=== PATIENT | male | born 1990 | race Caucasian/White ===

== ENCOUNTER 2018-03-21 23:04 | Inpatient (IN) | payer OTHER ==
[~2018-03-21] VITALS: Ht 180.3 cm; Wt 137.0 kg
--- NOTE | 2018-03-21 23:45 | ED GI/GU/ABDOMINAL COMPLAINT ---
History of Present Illness General Chief Complaint: Male Genitourinary Problems Stated Complaint: GROIN PAIN Source: patient Exam Limitations: no limitations Vital Signs & Intake/Output Vital Signs & Intake/Output Vital Signs Date Time Temp Pulse Resp B/P B/P Pulse O2 O2 Flow FiO2 Mean Ox Delivery Rate 03/22 0331 98.8 96 20 116/62 98 Room Air 03/21 2341 100.3 121 20 121/66 98 Room Air ED Intake and Output 03/22 0000 03/21 1200 Intake Total 2000 Output Total Balance 2000 Intake, IV 1000 Intake, Oral 1000 Patient 302 lb Weight Weight Reported by Patient Measurement Method Reconcile Medications No Known Home Medications Triage Note: PT FROM HOME WITH C/O PAIN TO RIGHT GROIN AREA.PT REPORTS THAT HE WAS AT WORK STANDING, DENIES LIFTING ANYTHING HEAVY. PT THEN STATES HE WAS LEAVING WORK HE BECAME PALE, DIZZY AND NAUSEOUS. PT REPORS HE SAT DOWN, DRANK WATER AND ATE AN ORANGE. PT REPORTS ALSO HAVING A FEVER AND HEADACHE. Triage Nurses Notes Reviewed? yes Onset: Gradual Duration: better Timing: single episode today Severity Numbers: 2 Radiation: no radiation HPI: Patient is a 27-year-old male with an unremarkable past medical history of present emergency room stating that today while working in a standing position he had a gradual onset of right localized groin pain we states that the pain was severe earlier today however symptoms have improved with ibuprofen. Patient denies any mechanism injury or trauma Patient denies any fever chills abdominal pain vomiting dysuria hematuria testicular pain or swelling. Patient does state that symptoms earlier may patient due to the pain feel nauseous and dizzy this is now resolved (Royal Solano) Allergies Coded Allergies: No Known Allergies (03/22/18) (Zeeshan Smith MD) Past History Travel History Traveled to [place] past 21 day No Medical History Any Pertinent Medical History? 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 No (Royal Solano) Review of Systems Review of Systems Constitutional: Reports: see HPI. EENTM: Reports: no symptoms. Respiratory: Reports: no symptoms. Cardiovascular: Reports: no symptoms. GI: Reports: no symptoms. Genitourinary: Reports: no symptoms. Musculoskeletal: Reports: see HPI, muscle pain. Skin: Reports: no symptoms. Neurological/Psychological: Reports: no symptoms. Hematologic/Endocrine: Reports: no symptoms. Immunologic/Allergic: Reports: no symptoms. All Other Systems: Reviewed and Negative (Royal Solano) Physical Exam Physical Exam General Appearance: no apparent distress, alert, comfortable Head: atraumatic Eyes: Bilateral: normal appearance. Ears, Nose, Throat, Mouth: moist mucous membrane Respiratory: normal breath sounds Cardiovascular: tachycardia Gastrointestinal: normal bowel sounds, soft, non-tender Male Genitals: normal genitalia Neurologic/Psych: no motor/sensory deficits, awake, alert, oriented x 3, normal gait, normal mood/affect Skin: intact, normal color Comments: -normal exam nontender testicular region no scrotal swelling cremaster reflex intact Right hip normal inspection mild point tenderness noted to abductor muscular group with no erythema or warmth fluctuance or induration 5 out of 5 resisted range of motion with mild pain with hip abduction Core Measures ACS in differential dx? No Sepsis Present: No Sepsis Focused Exam Completed? No (Royal Solano) Progress Differential Diagnosis: appendicitis, diverticulitis, epididymitis, esophageal varices, hernia, ischemic bowel, inflamm bowel dis, orchitis, pancreatitis, prostatitis, peptic ulcer, PUD/GERD, perforated viscous, pyelonephritis, SBO, STD, testicular torsion, ureterolithiasis, urinary retention, urethritis, UTI/ pyelo Plan of Care: Orders Procedure Date/time Status Regular Diet 03/22 B Active Patient Data 03/22 033 Active OXYGEN SETUP (GEN) 03/22 033 Active Saline Lock 03/22 0331 Active Admit to inpatient 03/22 0331 Active Vital Signs 03/22 0331 Active Activity/Ambulation 03/22 0331 Active Code Status 03/22 0331 Active LACTIC ACID 03/22 0041 Complete URINALYSIS 03/22 0022 Complete BLOOD CULTURE 03/22 0021 Active COMPREHENSIVE METABOLIC PANEL 03/22 0020 Complete CBC WITHOUT DIFFERENTIAL 03/22 0020 Complete Current Medications Sig/Servando Start time Last Medication Dose Stop Time Status Admin Sodium Chloride 1,000 ML BOLUS ONE 03/22 0345 AC 03/22 (Normal Saline 0.9%) 03/22 0444 0339 Laboratory Tests 03/22/18 0341: Lactic Acid Cancelled 03/22/18 0117: Lactic Acid 1.0 03/22/18 011: Anion Gap 13, Estimated GFR > 60, BUN/Creatinine Ratio 26.3 H, Glucose 124 H, Calcium 9.5, Total Bilirubin 0.5, AST 20, ALT 49, Alkaline Phosphatase 42, Total Protein 7.0, Albumin 4.1, Globulin 2.9, Albumin/Globulin Ratio 1.4 03/22/18 0056: Urinalysis LIGHT H, Urine Color YEL, Urine Clarity HAZY H, Urine pH 7.0, Ur Specific [place] 1.015, Urine Protein NEG, Urine Ketones 15 H, Urine Nitrite NEG, Urine Bilirubin NEG, Urine Urobilinogen 1.0, Ur Leukocyte Esterase NEG, Ur Microscopic SEDIMENT EXAMINED, Urine RBC RARE, Ur Epithelial Cells RARE, Urine Bacteria RARE H, Urine Hemoglobin TRACE-INTACT H, Urine Glucose NEG 03/22/18 0053: CBC w Diff MAN DIFF ORDERED, RBC 5.18, MCV 85.9, MCH 29.4, MCHC 34.2, RDW 13.7, MPV 9.3, Gran % 94.4 H, Lymphocytes % 2.7 L, Monocytes % 2.9, Eosinophils % 0, Basophils % 0, Absolute Granulocytes 30.5 H, Segmented Neutrophils 89 H, Band Neutrophils 2, Absolute Lymphocytes 0.9 L, Lymphocytes 3 L, Monocytes 6, Absolute Monocytes 0.9 H, Absolute Eosinophils 0, Absolute Basophils 0, Platelet Estimate ADEQUATE, Hypochromic-Microcytic 1+ Microbiology 03/22 012 BLOOD: Blood Culture - RECD 03/22 117 BLOOD: Blood Culture - RECD An initial evaluation patient is noted to be having a low-grade fever, no testicular pain or swelling on exam no concerns of Teodoro's gangrene Cremaster reflex intact patient has reproducible pain upon palpation of the muscular group of the hip abductor with no concerns of cellulitis or abscess Pain is reproduced with muscular movement Pain is nontender abdomen BLOOD WORK PENDING Discussed HANDOFF WITH DR SMITH Initial ED EKG: none Hand-Off Endorsed To: Zeeshan Smith MD Endorsed Time: 39 Pending: labs (Izabela MORALES,Royal) Departure Departure Condition: Stable Referrals: Patient Has No Primary Care Dr (PCP/Family) Additional Instructions: As discussed if symptoms worsen or if YOU develop a new concerning symptom return to emergency room. Return to emergency room in 2 days if no better. Begin and continue Motrin for pain and Tylenol for fevers. Departure Forms: Customer Survey General Discharge Information Prescriptions: Current Visit Scripts No Known Home Medications (Izabela MORALES,Royal) Departure Disposition: STILL A PATIENT Clinical Impression Primary Impression: Leukocytosis Secondary Impressions: Fever, Right groin pain Admission Note Spoke With: Rissa Guerrero MD Documentation of Exam: Documentation of any treatments & extenuating circumstances including Concerns Regarding Discharge (functional status, medication knowledge or non-compliance, living conditions, etc.) that warrant an admission rather than observation: Serial lab exam hematology review of smear follow cultures and empiric IV antibiotics fever control medication adjustment continuing care discharge planning PA/PATIENT ACCESS ASSOCIATE Co-Sign Statement Statement: ED Attending supervision documentation- x I saw and evaluated the patient. I have also reviewed all the pertinent lab results and diagnostic results. I agree with the findings and the plan of care as documented in the PA's/PATIENT ACCESS ASSOCIATE's documentation. Right thigh pain, low grade fever with leukocytosis, fever. Umbilical hernia reducible nontender [] I have reviewed the ED Record and agree with the PA's/PATIENT ACCESS ASSOCIATE's documentation. [] Additions or exceptions (if any) to the PAs/PATIENT ACCESS ASSOCIATE's note and plan are summarized below: [] (Chasidy LOZOYA,Zeeshan)
[2018-03-22 00:58] LABS: ABSOLUTE BASOPHIL COUNT 0 /CUMM (0.0-0.2); ABSOLUTE EOSINOPHIL COUNT 0 /CUMM (0.0-0.7); ABSOLUTE GRANULOCYTE CT 30.5 /CUMM (1.4-6.5); ABSOLUTE LYMPH COUNT 0.9 /CUMM (1.2-3.4); ABSOLUTE MONOCYTE COUNT 0.9 /CUMM (0.10-0.60); BASOPHIL % 0 % (0.0-2.0); EOSINOPHIL % 0 % (0-5); GRANULOCYTE % 94.4 % (42.2-75.2); HEMATOCRIT 44.5 % (42-52); MEAN CORPUSCULAR HGB 29.4 PG (27.0-31.0); MEAN CORPUSCULAR HGB CONC 34.2 G/DL (33.0-37.0); MEAN CORPUSCULAR VOLUME 85.9 FL (80.0-94.0); MEAN PLATELET VOLUME 9.3 FL (7.4-10.4); PLATELET COUNT 304 /CUMM (130-400); RBC DISTRIBUTION WIDTH 13.7 % (11.5-14.5); RED BLOOD CELL CT 5.18 /CUMM (4.70-6.10)
[2018-03-22 01:02] LABS: WHITE BLOOD CELL COUNT 32.3 /CUMM (4.8-10.8)
--- NOTE | 2018-03-22 02:36 | CT SCAN REPORT ---
EXAMINATION: CT ABDOMEN AND PELVIS WITH CONTRAST CLINICAL INFORMATION: Groin pain. Fever. COMPARISON: None TECHNIQUE: Multidetector volumetric imaging was performed of the abdomen and pelvis following IV administration of 95 mL of Optiray 320 intravenous contrast. Sagittal and coronal reformatted images were obtained on the technologist's workstation. DLP: 1585 mGy-cm FINDINGS: LUNG BASES: The visualized lung bases are unremarkable. LIVER, GALLBLADDER, AND BILIARY TREE: The liver is normal in size, shape, and attenuation. No focal hepatic lesion or biliary ductal dilatation is present. The gallbladder is unremarkable with no evidence of radiopaque gallstones, gallbladder wall thickening, or obvious pericholecystic inflammatory changes. PANCREAS: Unremarkable. SPLEEN: Unremarkable. ADRENAL GLANDS: Unremarkable. KIDNEYS AND URETERS: The kidneys are normal in size, shape, and attenuation. No hydronephrosis, hydroureter, or calculi seen. No perinephric stranding. BLADDER: Unremarkable. GASTROINTESTINAL TRACT: The stomach is unremarkable. The small bowel is normal in caliber. There is no obstruction. Normal appendix. No colonic wall thickening or inflammatory change. No free air or free fluid. ABDOMINAL WALL: Prominent fat-containing umbilical hernia. This measures 7.1 cm AP by 5.9 cm transverse by 7.4 cm CC. There is no inflammatory change seen in the inguinal regions. No inflammation in the peroneal region. No soft tissue gas. Of note, the scrotum is not included in the [id number] of this study. LYMPH NODES: Normal. VASCULAR: Unremarkable. PELVIC VISCERA: The prostate and seminal vesicles are unremarkable. OSSEOUS STRUCTURES: No acute or suspicious osseous abnormality. IMPRESSION: No acute findings of the abdomen or pelvis. No inflammatory changes.
--- NOTE | 2018-03-22 03:40 | RADIOLOGY REPORT ---
EXAMINATION: XR CHEST CLINICAL INFORMATION: Fever, leukocytosis COMPARISON: None TECHNIQUE: 2 views of the chest were obtained. FINDINGS: The lungs are well expanded. There is no focal consolidation, edema, or effusion. No pneumothorax. The cardiomediastinal silhouette is within normal limits. No acute osseous abnormality. IMPRESSION: No acute pulmonary findings.
--- NOTE | 2018-03-22 03:53 | History & Physical ---
Casper LOZOYA,Frances 03/22/18 0353: General Information and HPI MD Statement: I have seen and personally examined ELIGIO CALDERON and documented this H&P. The patient is a 27 year old M who presented with a patient stated chief complaint of [groin pain]. Source of Information: patient, old records, EMS Exam Limitations: no limitations History of Present Illness: Patient is a 27 YO M with PMH significant for Polysubstance abuse quit recently, morbid obseity presented to [facility] after experiencing upper and inner thigh pain since this morning after hitting a cupboard in his work place. He had this nagging pain since morning, however got worse by evening resulting in lightheadedness, headache, nausea, low-grade fever. He measured his temperature is 100F at work. 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 He recently started to work on loosing weight and lost around 55 lb so far. He altered his diet and quit drinking alcohol, marijuana. ROS No cough, chest pain, shortness of breath, abdominal pain, diarrhea, burining urination, sick contacts at work. No recent travel. PMH Cellulitis 2yrs ago on right leg NKDA No meds Social Quit smoking 1.5yrs ago. Quit alcohol 6 months ago (heavy 5/6 drinks per day), Occasionally smokes marijuana -- last intake a week ago. 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 Home Who Do You Live With? brother Services at Home: None Smoking Status: Former Smoker ETOH Use: occasional use Illicit Drug Use: marijuana Functional Ability ADLs Independent: dressing, eating, toileting, bathing. Ambulation: independent IADLs Independent: shopping, housework, finances, food prep, telephone, transportation , medication admin. Review of Systems Review of Systems Constitutional: Reports: no symptoms. Exam & Diagnostic Data Last 24 Hrs of Vital Signs/I&O Vital Signs Date Time Temp Pulse Resp B/P B/P Pulse O2 O2 Flow FiO2 Mean Ox Delivery Rate 03/22 0331 98.8 96 20 116/62 98 Room Air 03/21 2341 100.3 121 20 121/66 98 Room Air Intake & Output 03/22 0800 03/22 0000 03/21 1600 Intake Total 2000 Output Total Balance 2000 Intake, IV 1000 Intake, Oral 1000 Patient 136.985 kg Weight Weight Reported by Patient Measurement Method Physical Exam General Appearance Alert, Oriented X3, Cooperative, No Acute Distress Skin A rash on his right umanzor region Skin Temp/Moisture Exam: Warm/Dry Sepsis Skin Exam (color): Normal for Ethnicity, Flushed HEENT Atraumatic, PERRLA, EOMI Neck Supple, prominent jugular pulsations Cardiovascular Normal S1, Normal S2, No Murmurs, tachycardic Lungs Clear to Auscultation, Normal Air Movement Abdomen Normal Bowel Sounds, Soft, No Tenderness Neurological Normal Gait, Normal Speech, Strength at 5/5 X4 Ext, Normal Tone, Sensation Intact Extremities No Clubbing, No Cyanosis, No Edema Vascular Normal Pulses Sepsis Peripheral Pulse Location: Dorsalis Pedis Sepsis Peripheral Pulse Exam: Bounding Sepsis Cap Refill Exam: <2 Sec Body Front and Back (Adult) 1) erythematous rash with nodules Last 24 Hrs of Labs/Juan: Laboratory Tests 03/22/18 0341: Lactic Acid Cancelled 03/22/18116: Lactic Acid 1.0, RPR Titer/FTA Pending 03/22/18116: Anion Gap 13, Estimated GFR > 60, BUN/Creatinine Ratio 26.3 H, Glucose 124 H, Calcium 9.5, Total Bilirubin 0.5, AST 20, ALT 49, Alkaline Phosphatase 42, Total Protein 7.0, Albumin 4.1, Globulin 2.9, Albumin/Globulin Ratio 1.4, TSH Pending, Free T4 Pending, HIV 1&2 Ab Western Blot Pending 03/22/18 0056: Urinalysis LIGHT H, Urine Color YEL, Urine Clarity HAZY H, Urine pH 7.0, Ur Specific [place] 1.015, Urine Protein NEG, Urine Ketones 15 H, Urine Nitrite NEG, Urine Bilirubin NEG, Urine Urobilinogen 1.0, Ur Leukocyte Esterase NEG, Ur Microscopic SEDIMENT EXAMINED, Urine RBC RARE, Ur Epithelial Cells RARE, Urine Bacteria RARE H, Urine Hemoglobin TRACE-INTACT H, Urine Glucose NEG 03/22/18 0053: CBC w Diff MAN DIFF ORDERED, RBC 5.18, MCV 85.9, MCH 29.4, MCHC 34.2, RDW 13.7, MPV 9.3, Gran % 94.4 H, Lymphocytes % 2.7 L, Monocytes % 2.9, Eosinophils % 0, Basophils % 0, Absolute Granulocytes 30.5 H, Segmented Neutrophils 89 H, Band Neutrophils 2, Absolute Lymphocytes 0.9 L, Lymphocytes 3 L, Monocytes 6, Absolute Monocytes 0.9 H, Absolute Eosinophils 0, Absolute Basophils 0, Platelet Estimate ADEQUATE, Hypochromic-Microcytic 1+ Microbiology 03/22 0440 URINE ROUT: Urine Culture - ORD 03/22 0120 BLOOD: Blood Culture - RECD 03/22 0117 BLOOD: Blood Culture - RECD Diagnostic Data CXR Results Normal Assessment/Plan Assessment: Patient is a very and 27-year-old male with no significant past history except for one episode of cellulitis 2 years ago on his right leg presented with progressive worsening of in that upper right thigh pain after having an injury to his right leg this morning. Over the course in the evening he started experiencing headaches with nausea and lightheadedness and presented to ED for further evaluation. Review of systems is negative. Vital signs at presentation are significant for 100.3, heart rate 121 saturating well on room air. Physical examination did show erythematous right lower extremity with nodules, prominent jugular veins, flushing skin no lymphadenopathy. No meningeal signs. Umbilical hernia. Significant tattoos in the upper extremity. Labs are significant for white count of 32 with segmented neutrophils and bandemia. H&H 15/44. Chem panel unremarkable except for BUN/creatinine ratio of 26. Lactate 1.0. Urinalysis is hazy. Blood and urine cultures are pending. Thyroid profile pending. Differential Patient had sudden onset significant leukocytosis with left shift and H&H of 15/ 44 along with right lower extremity erythema after an injury. My differential at this point includes significant dehydration along with possible stress related leukocytosis. Infection is certainly under the differential given right lower extremity erythema and history of cellulitis. It is important to rule out other possibilities like stress fracture of the right lower extremity. Other remote possibilities include meningitis given rapid presentation although lacks meningeal signs, RMSF, lyme. Rule out noninfectious causes with right lower extremity Doppler. Problem list 1. Right lower extremity erythema and inner thigh pain s/p injury 2. Fever with left shift 3. Marijuana intake by history Plan Admite to general medicine floor Right lower extremity erythema and upper/inner thigh pain s/p trauma * SIRS positive with fever and tachycardia * Right thigh and leg x-rays to rule out stress fracture * Right lower extremity Doppler to rule out DVT * Monitor erythema of the lower extremity for any further progression and also signs of meningitis * A single dose of IV ceftriaxone 2 g given in the ER * Vitals every shift - monitor fever curve * HIV, RPR, hepatitis panel * Follow blood and urine cultures * IV hydration with normal saline * Recheck CBC and BEP in the a.m. * Monitor off antibiotics for now * ID consult if deemed Marijuana intake Patient reports having low back pain at baseline. 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 No point tenderness on palpation. Smokes marijuana for relief. * Tox screen DVT prophylaxis * SC heparin Code status * Full code As Ranked By This Provider Problem List: 1. Leukocytosis 2. Fever Core Measures/Misc (05/27) Acute Coronary Syndrome ACS Diagnosis: No Congestive Heart Failure Congestive Heart Failure Diagnosis No Cerebrovascular Accident CVA/TIA Diagnosis: No VTE (View Protocol) VTE Risk Factors Acute Medical Illness No Mechanical VTE Prophylaxis d/t N/A MechProphylax Ordered No VTE Pharm Prophylaxis d/t NA PharmProphylax ordered Sepsis (View protocol) Sepsis Present: No If YES complete Sepsis Event Note If YES complete Sepsis Event Note Resident Review Statement Resident Statement: examined this patient, discussed with research program internship, agreed with research program internship, discussed with family, reviewed EMR data (avail), discussed with nursing , discussed with case mgmt, reviewed images, amended to note Other Findings: as above Rissa Guerrero MD 03/22/18 0358: Core Measures/Misc (05/27) Sepsis (View protocol) If YES complete Sepsis Event Note If YES complete Sepsis Event Note Attending MD Review Statement Attending Statement Attending MD Statement: examined this patient, discuss w/resident/PA/RICE FARMWORKER, agreed w/resident/PA/RICE FARMWORKER, reviewed EMR data (avail) Attending Assessment/Plan: 27M no PMH presenting with 1 day of fever, chills, and right inner thigh pain. Symptoms started slowly over the course of today, treated with Motrin, but came to ER after he developed a headache and nausea. Febrile 100.3 in ER, sinus tach 121, BP 121/66. He received 1L normal saline and immediately felt better. When I saw him, he had no complaints, and reported that his thigh pain resolved. He denies stiff neck, photophobia, sore throat, cough, chest pain, SOB, abdominal pain, flank pain, diarrhea, dysuria. No recent travel, sick contacts, trauma, or IVDU. Found to have WBC 32 with 92% PMNs and no bands, normal Hgb and platelets, normal renal function and LFTs, lactate 1.0, urinalysis normal. CT abdomen/pelvis normal. On physical exam, he appears diaphoretic but not septic/ toxic. Cardiopulmonary exam normal, no thigh erythema/tenderness, no testicular tenderness, soft abdomen, normal extremities, no meningeal signs. 1. Fever and neutrophilia 2. Right thigh pain 3. Ventral hernia Plan - Admit to general medicine - Blood and urine cultures - Obtain RLE doppler - Hold antibiotics for now - ID consult - IV hydration - DVT PPx
--- NOTE | 2018-03-22 05:22 | RADIOLOGY REPORT ---
EXAMINATION: XR HIP, RIGHT XR TIBIA AND FIBULA, RIGHT CLINICAL INFORMATION: Right hip pain at the inner thigh. Fever and leukocytosis. Trauma. COMPARISON: None TECHNIQUE: 2 views of the right hip. AP and lateral views of the right tibia and fibula were obtained. FINDINGS: Right hip: There is no fracture or dislocation. The femoral head articulates appropriately with the acetabulum. The joint space is maintained. The soft tissues are unremarkable. Contrast noted in the bladder. Right tibia/fibula: No fracture or cortical disruption. Alignment is anatomic at the knee. Alignment at the ankle is grossly maintained. Mild superficial edema. IMPRESSION: No acute abnormality at the right hip or right tibia/fibula.
[2018-03-22 06:12] LABS: ABSOLUTE BASOPHIL COUNT 0 /CUMM (0.0-0.2); ABSOLUTE EOSINOPHIL COUNT 0 /CUMM (0.0-0.7); ABSOLUTE GRANULOCYTE CT 19.8 /CUMM (1.4-6.5); ABSOLUTE LYMPH COUNT 0.7 /CUMM (1.2-3.4); ABSOLUTE MONOCYTE COUNT 0.6 /CUMM (0.10-0.60); BASOPHIL % 0.2 % (0.0-2.0); EOSINOPHIL % 0 % (0-5); GRANULOCYTE % 93.6 % (42.2-75.2); HEMATOCRIT 39.6 % (42-52); MEAN CORPUSCULAR HGB 29.2 PG (27.0-31.0); PLATELET COUNT 223 /CUMM (130-400); RBC DISTRIBUTION WIDTH 13.4 % (11.5-14.5); RED BLOOD CELL CT 4.61 /CUMM (4.70-6.10); WHITE BLOOD CELL COUNT 21.1 /CUMM (4.8-10.8)
[2018-03-22 07:00] VITALS: BP 156/62
--- NOTE | 2018-03-22 07:05 | PN- Housestaff ---
Neo Cavazos 03/22/18 0705: Subjective Follow-up For: Right thigh pain Complaints: no complaints Subjective: Patient was seen and examined at the bedside, brother present. States that his thigh pain has completely resolved, still having 2/10 pain in his right umanzor due to where he hit it against a shelf yesterday. No other complaints, no acute events overnight. Review of Systems Constitutional: Reports: no symptoms. Objective Last 24 Hrs of Vital Signs/I&O Vital Signs Date Time Temp Pulse Resp B/P B/P Pulse O2 O2 Flow FiO2 Mean Ox Delivery Rate 03/22 07 99.4 104 18 156/62 98 Room Air 03/22 0638 98.2 94 20 128/86 99 Room Air 03/22 0331 98.8 96 20 116/62 98 Room Air 03/21 2341 100.3 121 20 121/66 98 Room Air Intake & Output 03/22 1600 03/22 0800 03/22 0000 Intake Total 3000 Output Total 625 Balance 2375 Intake, IV 2000 Intake, Oral 1000 Output, Urine 625 Patient 302 lb Weight Weight Reported by Patient Measurement Method Physical Exam General Appearance: Alert, Oriented X3, Cooperative, No Acute Distress Skin: No Rashes Skin Temp/Moisture Exam: Warm/Dry HEENT: Atraumatic, PERRLA, EOMI Neck: Supple, No JVD, No thryomegaly Cardiovascular: Regular Rate, Normal S1, Normal S2, No Murmurs Lungs: Clear to Auscultation, Normal Air Movement Abdomen: Soft, No Tenderness, No Hepatospenomegaly, distended; hernia present in umbilicus Neurological: Normal Gait, Normal Speech, Strength at 5/5 X4 Ext, Normal Tone, Sensation Intact Extremities: No Clubbing, No Cyanosis, No Edema, Normal Pulses, area of erythema on right umanzor, now outlined in marker Assessment/Plan Assessment: Patient is a 27 yo male with PMH significant for recent cessation of polysubstance abuse, morbid obesity who presented to the ER for nagging, stabbing pain in inner thigh since at noon. Also pain in right umanzor following mechanical injury yesterday. Problem list/plan: Right lower extremity erythema and inner thigh pain -Admit to general medicine floor -Right thigh and leg x-rays ruled out stress fracture -Doppler ultrasound ruled out DVT -Vitals per protocol -Once dose of Ceftriaxone given in ER; follow without abx at this time. -monitor erythema on lower leg for progression -IV hydration with normal saline -recheck CBC and BEP in am to monitor resolution of leukocytosis -If patient spikes fever, consider ID consult DVT Prophylaxis: Subcu heparin Patient is full code Problem List: 1. Right groin pain 2. Leukocytosis Pain Ratin Pain Location: right umanzor Pain Goal: pain free Pain Plan: Tylenol and morphine prn Tomorrow's Labs & Rationales: cbc, bep for resolving leukocytosis Discharge Plan Discharge Disposition: home Stable for Discharge? No Anticipated Discharge (Day): tomorrow Stacie Mcnair 03/22/18 1132: Attending MD Review Statement Attending Statement Attending MD Statement: examined this patient, discuss w/resident/PA/EMBROIDERY SUPERVISOR, agreed w/resident/PA/EMBROIDERY SUPERVISOR, discussed with family, reviewed EMR data (avail), discussed with nursing, discussed with case mgmt, reviewed images, amended to note Attending Assessment/Plan: Patient with right hip pain which is now resolved. Imaging reveals no acute pathology. He has leukocytosis and temp 100.3 on presentation. He also complans of lower extremity redness after he hit his leg. He received one dose of antibiotic in ER. Monitor off abx, off fever and if wbc trend down tomorrow and his lower extremity redness not worsens then he is candidate for discharge tomorrow.
--- NOTE | 2018-03-22 10:01 | ULTRASOUND REPORT ---
EXAMINATION: US TRIPLEX LOWER EXTREMITY, RIGHT CLINICAL INFORMATION: Cellulitis, trauma, septic. COMPARISON: None TECHNIQUE: Color-flow triplex imaging with spectral analysis and compression Doppler were performed on the lower extremity. FINDINGS: Respiratory variation, normal compression and augmented flow are noted throughout the lower extremity. The visualized common femoral vein, superficial femoral vein, profunda femoral vein, popliteal vein and midcalf peroneal and posterior tibial venous segments show no evidence of deep venous thrombosis. There is no Cesar's cyst. Right groin lymph node measures 3.1 x 1.4 x 1.9 cm, nonspecific but may be reactive. IMPRESSION: No evidence of deep venous thrombosis involving the lower extremity.
--- NOTE | 2018-03-22 11:38 | Patient Discharge Instructions ---
Discharge Instructions General Discharge Information Special Instructions: - Please follow up with your primary care physician within 1-2 weeks of discharge. Inform your primary care physician of this admission to [facility]. - Continue your current medications per discharge instructions. - Please watch for these problems: Fever, Chills, Nausea, Vomiting, Shortness of Breath, Productive Cough, Chest Pain/Discomfort, Abdominal Pain, Active Bleeding or Bloody urine/stool. Diet Continue normal diet: Yes Activity Full Activity/No Limits: Yes Acute Coronary Syndrome Inclusion Criteria At DC or during hospital stay patient has or had the following: ACS DIAGNOSIS No Discharge Core Measures Meds if any: Prescribed or Continued at Discharge Meds if any: NOT Prescribed or Continued at Discharge Congestive Heart Failure Inclusion Criteria At DC or during hospital stay patient has or had the following: CHF DIAGNOSIS No Discharge Core Measures Meds if any: Prescribed or Continued at Discharge Meds if any: NOT Prescribed or Continued at Discharge Cerebrovascular accident Inclusion Criteria At DC or during hospital stay patient has or had the following: CVA/TIA Diagnosis No Discharge Core Measures Meds if any: Prescribed or Continued at Discharge Meds if any: NOT Prescribed or Continued at Discharge Venous thromboembolism Inclusion Criteria VTE Diagnosis No VTE Type NONE VTE Confirmed by (Test) NONE Discharge Core Measures - Per Current guidelines, there needs to be overlap - treatment for the first 5 days of Warfarin therapy. - If discharged on Warfarin prior to 5 days of - overlap therapy, the patient will need to be - assessed for post discharge needs including - *Post discharge parental anticoagulation - *Warfarin and/or parental anticoagulation education - *Follow up date to check INR post discharge At least 5 days overlap therapy as Inpatient No Meds if any: Prescribed or Continued at Discharge Note: Overlap Therapy is Warfarin and Anticoagulant Meds if any: NOT Prescribed or Continued at Discharge
--- NOTE | 2018-03-22 13:18 | Discharge Summary ---
Visit Information Visit Dates Admission Date: 03/22/18 Discharge Date: 03/23/18 Hospital Course Course Attending Physician: Stacie Mcnair MD Primary Care Physician: Patient Has No Primary Care Dr Hospital Course: Mr. Bliss was admitted to the hospital for a sharp, stabbing pain in his right upper thigh, lasting for >12 hours. He also noted that he had bumped into a shelf while at work that day. After presenting to the ED, he was checked for fractures w/ x-ray/CT, and checked for DVT w/ venous doppler, all negative. After admission for one day to ensure safety, he was discharged to home. Allergies: Coded Allergies: No Known Allergies (03/22/18) Pertinent Lab Results: SERVICE DATE: 03/22/18- EXAM TYPE: RAD - XRY-HIP 2-3 VIEWS, RIGHT; [id number], RIGHT IMPRESSION: No acute abnormality at the right hip or right tibia/fibula. SERVICE DATE: 03/22/18 EXAM TYPE: CAT - CT ABD & PELVIS W IV CONTRAST IMPRESSION: No acute findings of the abdomen or pelvis. No inflammatory changes. SERVICE DATE: 03/22/18 EXAM TYPE: US - US-UNILATERAL VENOUS DOPPLER IMPRESSION: No evidence of deep venous thrombosis involving the lower extremity. Disposition Summary Disposition Principal Diagnosis: Groin strain Additional Diagnosis: Leukocytosis Discharge Disposition: home or self care Discharge Instructions General Discharge Information Code Status: Full Code Patient's Diet: Regular Patient's Activity: Regular as tolerated Follow-Up Instructions/Appts: - Please follow up with your primary care physician within 1-2 weeks of discharge. Inform your primary care physician of this admission to [facility]. - Continue your current medications per discharge instructions. - Please watch for these problems: Fever, Chills, Nausea, Vomiting, Shortness of Breath, Productive Cough, Chest Pain/Discomfort, Abdominal Pain, Active Bleeding or Bloody urine/stool. Medications at Discharge Discharge Medications: Start taking the following new medications: Amoxicillin/Potassium Clav (Augmentin 875-125 Tablet) 875 MG-125 MG TABLET 1 Tablet ORAL TWICE DAILY Qty = 10 No Refills Comments: NOT GIVEN IN HOSPITAL Copies To: Unknown Attending MD Review Statement Documenting Attending: Stacie Mcnair MD Other Findings: Patient with lower extremity redness and possible cellultiis discharged on PO antibitoics. WBC improved since admisison and no fevers at dsicharge. Discharing physician Dr Kayode Swanson MD
[2018-03-22 14:20] VITALS: BP 124/73
[2018-03-22 21:55] VITALS: BP 130/70
[2018-03-23 07:18] VITALS: BP 120/64
--- NOTE | 2018-03-23 08:25 | PN- Housestaff ---
See Addendum Subjective Follow-up For: R Thigh Pain Subjective: Examiner bedside. Patient denied complaints overnight, states that he had not had any systemic signs, states that the discoloration of his right lower extremity has traveled somewhat inferiorly, although superior margin of it also travels inferiorly as well. States that the pain has resolved. Denies fevers/ chills/chest pain/abdominal pain/urinary symptoms/edema. No acute events overnight. Review of Systems Constitutional: Reports: see HPI. Objective Last 24 Hrs of Vital Signs/I&O Vital Signs Date Time Temp Pulse Resp B/P B/P Pulse O2 O2 Flow FiO2 Mean Ox Delivery Rate 03/23 0718 98.5 87 20 120/64 97 03/22 2155 98.5 84 20 130/70 98 Room Air 03/22 1600 Room Air 03/22 1420 98.0 94 20 124/73 100 Room Air Physical Exam General Appearance: Alert, Oriented X3, Cooperative, No Acute Distress Skin: No Rashes Skin Temp/Moisture Exam: Warm/Dry Cardiovascular: Regular Rate, Normal S1, Normal S2 Lungs: Clear to Auscultation, Normal Air Movement Abdomen: Soft, No Tenderness Neurological: Strength at 5/5 X4 Ext, Sensation Intact Extremities: No Edema, erythema outlined to anterior right umanzor, has progressed per patient inferiorly in both superior and inferior borders. No evolution of shape, no new areas of erythema, nontender to palpation Current Medications: Current Medications Sig/Srevando Start time Last Medication Dose Route Stop Time Status Admin Acetaminophen 1,000 MG Q6P PRN 03/22 0445 AC IV Heparin Sodium 5,000 UNIT Q8 03/22 0600 AC 03/23 (Porcine) SC 0659 Morphine Sulfate 2 MG Q6-PRN PRN 03/22 0445 AC IV Patient Medication 1 ED ONE ONE 03/22 1330 DC 03/22 Teaching ED 03/22 1331 1422 Assessment/Plan Assessment: Patient is a 27 yo male with PMH significant for recent cessation of polysubstance abuse, morbid obesity who presented to the ER for nagging, stabbing pain in inner thigh since at noon. Also pain in right umanzor following mechanical injury yesterday. Problem list/plan: Right lower extremity erythema and inner thigh pain -Right thigh and leg x-rays ruled out stress fracture -Doppler ultrasound ruled out DVT -Vitals per protocol -Holding Abx -monitor erythema on lower leg for progression - has moved inferiorly but has not increased in size. Nontender, not warm, looks more like ecchymosis. -IV hydration with normal saline -WBC 32.3-->21.1-->will check this am -Afebrile overnight. No acute concerns re infection Disposition: to home if no leukocytosis DVT Prophylaxis: Subcu heparin Patient is full code Problem List: 1. Leukocytosis Pain Ratin Pain Location: na Pain Goal: Remain pain free Pain Plan: pain pathway Tomorrow's Labs & Rationales: na
[2018-03-23 10:32] LABS: ABSOLUTE BASOPHIL COUNT 0 /CUMM (0.0-0.2); ABSOLUTE EOSINOPHIL COUNT 0.1 /CUMM (0.0-0.7); ABSOLUTE LYMPH COUNT 1.5 /CUMM (1.2-3.4); ABSOLUTE MONOCYTE COUNT 1.1 /CUMM (0.10-0.60); BASOPHIL % 0.4 % (0.0-2.0); EOSINOPHIL % 0.8 % (0-5); GRANULOCYTE % 64.8 % (42.2-75.2); HEMATOCRIT 41.7 % (42-52); MEAN CORPUSCULAR HGB 29.2 PG (27.0-31.0); MEAN CORPUSCULAR HGB CONC 33.7 G/DL (33.0-37.0); MEAN CORPUSCULAR VOLUME 86.5 FL (80.0-94.0); MEAN PLATELET VOLUME 9.3 FL (7.4-10.4); PLATELET COUNT 209 /CUMM (130-400); RED BLOOD CELL CT 4.82 /CUMM (4.70-6.10)
[2018-03-23 10:50] LABS: WHITE BLOOD CELL COUNT 7.7 /CUMM (4.8-10.8)
[2018-03-23] MEDS ORDERED: AUGMENTIN 875-1 EACH PO (11:07)
== END 2018-03-23 13:28 | DRG 864 ==
LOC: ERH 23:04 → ERHI 03-22 03:31 → 2NB 03-22 03:31 → ENRESERV 03-22 05:54 → 2NB 03-22 06:41 → ENPENDDIS 03-23 11:24 → 2NB 03-23 13:28
PROVIDERS: Internal Medicine; Physical Medicine & Rehabilitation; Physician Assistant
DX: R50.9 Fever, unspecified (principal); M79.651 Pain in right thigh; E66.01 Morbid (severe) obesity due to excess calories; D72.829 Elevated white blood cell count, unspecified; S79.921A Unspecified injury of right thigh, initial encounter; X58.XXXA Exposure to other specified factors, initial encounter; Y92.89 Other specified places as the place of occurrence of the external cause
CPT/HCPCS: 2NBP; 36415; 71046; 73502-RT; 73590-RT; 74177; 81001; 82436; 87040; 87086; 87389; 96361; 96374; J0131; J0696; J1644